=== PATIENT | female | born 1995 | race Caucasian/White ===

== ENCOUNTER 2016-12-26 03:11 | Emergency (ER) | payer BC ==
[~2016-12-26] VITALS: Ht 165.1 cm; Wt 52.0 kg
[~2016-12-26 03:11] MED LIST: BCPILLS PO; ESCI1TAB10 PO
[2016-12-26 03:18] VITALS: TEMP 36.6; Ht 165.1 cm; Wt 52.0 kg
[2016-12-26 03:47] VITALS: BP 100/64; PULSE 87; O2SAT 98
--- NOTE | 2016-12-26 23:26 | EMERGENCY ROOM VISIT NOTE ---
ED Visit Note First contact with patient: 03:22 CHIEF COMPLAINT: Altered mental status from Alcohol overdose HISTORY OF PRESENT ILLNESS: This 21 year old female patient presents to the emergency department via ambulance for possible alcohol intoxication. The patient admits to having a few drinks tonight, and was walking back to her dorm room. The patient was evidently being accompanied by a male, and as she entered the dorm she was identified by the RA as being "drunk". The RA contacted EMS and the patient now presents for evaluation. The patient does not have any complaints, and voices frustration that she is here. The patient feels that she was forced into coming, as evidently they were going to call campus police. The patient does not have any complaints. No chronic medical disease. REVIEW OF SYSTEMS: More than 10 systems were reviewed and otherwise negative with the exception of history of present illness. ALLERGIES: See EMR MEDICATIONS: See EMR PMH: No chronic medical disease SOCIAL HISTORY: Student lives locally PHYSICAL EXAM VITALS: Vitals are noted on the nurse's note and reviewed by myself. Vital signs stable. GENERAL: White female, who is in no acute distress and resting comfortably. HEAD: Normocephalic atraumatic. EARS: External ear normal. External auditory canals clear, tympanic membranes pearly tran without erythema or effusion bilaterally. EYES: Pupils equal round and reactive to light and accommodation. Conjunctivae without injection, sclerae without icterus. Extraocular movements intact. NOSE: Patent, turbinates without inflammation or discharge. MOUTH: Mucous membranes moist. Tonsils are not enlarged. Pharynx without erythema, blood, vomitus, or exudate. Uvula midline. Airway patent. NECK: Supple without nuchal rigidity. No lymphadenopathy. Cervical spine is nontender. HEART: Regular rate and rhythm without murmurs gallops or rubs. LUNGS: Clear to auscultation bilaterally without wheezes, rales or rhonchi. No retractions or accessory muscle use. ABDOMEN: Positive normal bowel sounds x 4. Soft, nontender, without masses or organomegaly. No guarding or rebound tenderness. MUSCULOSKELETAL: No muscle atrophy, erythema, or edema noted. Gross motor function intact to all extremities. NEURO: Patient was alert to person but not place or time. They appear with altered mental status. SKIN: The skin was without rashes, erythema, edema, or bruising. No Tenting of the skin. EMERGENCY DEPARTMENT COURSE: Physical exam and history was performed. Nursing notes and EMR were reviewed. The patient appears well on examination. She does not appear intoxicated clinically, and feels like she was coerced into coming here. The patient does have a sober friend here, and discharge appears appropriate. The patient was given discharge instructions below and invited back to the ER with any new, worsening, or concerning symptoms. Current/Historical Medications Scheduled Control Pills ( Control Pills), 1 TAB PO DAILY Escitalopram Oxalate (Lexapro), 20 MG PO DAILY Allergies Coded Allergies: No Known Allergies (Unverified , 06/08/15) Vital Signs Date Time Temp Pulse Resp B/P (MAP) Pulse Ox O2 Delivery O2 Flow Rate FiO2 12/26/16 03:47 87 18 100/64 98 12/26/16 03:18 36.6 89 18 107/72 98 Room Air Departure Information Impression Primary Impression: Alcohol use Dispostion Home / Self-Care Condition GOOD Referrals [facility] (PCP) Forms HOME CARE DOCUMENTATION FORM, IMPORTANT VISIT INFORMATION Patient Instructions My [facility] Additional Instructions You were seen and evaluated today on an emergency basis only. This is not a substitute for, or an effort to provide, complete comprehensive medical care. It is not possible to recognize and treat all injuries or illnesses in a single emergency department visit. For this reason it is recommended that you followup with your primary care physician with any ongoing or persisting symptoms. Drink plenty fluids and remain well hydrated. You are welcome to return to the emergency department anytime with new, worsening, or concerning symptoms.
== END 2016-12-26 03:48 | disposition home or self-care (01) ==
LOC: C.EDA 03:11 → EDBD 03:11 → C.EDA 03:48
DX: F10.129 Alcohol abuse with intoxication, unspecified (principal)